=== PATIENT | female | born 1975 | race Two or more races ===

== ENCOUNTER 2022-04-28 07:48 | Outpatient (CLI) | payer OTHER | END 2022-04-28 07:51 | disposition home or self-care (01) | LOC: SONOGRAMA 07:48 | PROVIDERS: ATTEND Pathology Anatomic Pathology & Clinical Pathology | DX: E04.1 Nontoxic single thyroid nodule (principal); D34 Benign neoplasm of thyroid gland; E06.3 Autoimmune thyroiditis ==